=== PATIENT | male | born 1940 | race Caucasian/White ===

== ENCOUNTER 2021-05-10 02:01 | Inpatient (IN) | payer MEDICARE ==
[2021-05-10 02:54] LABS: #Lymphocytes 0.8 thou/uL (1.20-3.40); #Monocytes 0.7 thou/uL (0.11-0.59); #Neutrophils 10.6 thou/uL (1.40-6.50); %Basophils 0.1 % (0.0-1.0); %Eosinophils 0.2 % (0.0-10.0); %Lymphocytes 6.4 % (21.0-51.0); %Neutrophils 87.2 % (42.0-75.0); Hemoglobin 11.7 g/dL (14.0-18.0); Mean Corpuscular HGB CONC 33.8 g/dL (32.0-36.0); Mean Corpuscular Hemoglobin 33.5 pg (27.0-31.0); Mean Corpuscular Volume 99.3 fL (78.0-98.0); Mean Platelet Volume 7.7 fL (7.4-10.4); Platelet Count 176 thou/uL (130-400); Red Blood Cell (RBC) Count 3.49 mill/uL (4.70-6.10); White Blood Cell (WBC) Count 12.2 thou/uL (4.8-10.8)
[2021-05-10 03:18] LABS: ALT (SGPT) 101 U/L (8-55); AST (SGOT) 23 U/L (5-34); Albumin 4.1 g/dL (3.4-4.8); Alkaline Phosphatase 355 U/L (40-110); Anion Gap 17 mmol/L (10-20); BUN (Urea Nitrogen) 22 mg/dL (8.4-25.7); Bilirubin, Total 0.8 mg/dL (0.2-1.2); Calc. Creatinine Clearance 0 mL/min (70-130); Calcium 9.5 mg/dL (7.8-10.44); Carbon Dioxide 21 mmol/L (23-31); Chloride 102 mmol/L (98-107); Globulin 3.2 g/dL (2.4-3.5); Glucose 177 mg/dL (83-110); Potassium 4.1 mmol/L (3.5-5.1); Protein, Total 7.3 g/dL (5.8-8.1); Sodium 136 mmol/L (136-145)
[2021-05-10] MEDS ORDERED: Aspirin Chewable 81 MG TAB ONE ×2 (04:50→11:05)
[2021-05-10 05:58] LABS: Bacteria/HPF None Seen HPF (None Seen); Bilirubin Negative (Negative); Blood, Urine Trace (Negative); Clarity Clear (Clear); Glucose, Urine (Dipstick) 150 mg/dL (Negative); Ketone, Urine 20 mg/dL (Negative); Leukocyte Negative Leu/uL (Negative); Nitrite Negative (Negative); Protein, Urine (Dipstick) 300 mg/dL (Neg-Trace); RBC/HPF 0-3 HPF (0-3); Specific Gravity, Urine 1.018 (1.002-1.036); Squamous Epithelial None Seen HPF (0-3); Urobilinogen Normal mg/dL (Less than 2); WBC/HPF 0-3 HPF (0-3)
[2021-05-10 06:01] LABS: CKMB 4.8 ng/mL (0-6.6)
[2021-05-10] MEDS ORDERED: Fentanyl 100 MCG/2 ML VIAL ONE (06:55)
[2021-05-10] MEDS ORDERED: Piperacillin/Tazobactam 3.375 GM VIAL ONE ×3 (06:55→13:35)
[2021-05-10] MEDS ORDERED: Ondansetron PF 4 MG/2 ML Vial IVP PRN (09:32)
[2021-05-10] MEDS ORDERED: Senokot S 8.6-50 MG TAB PO PRN (09:32)
[2021-05-10] MEDS ORDERED: Ondansetron ODT 4 MG TAB PO PRN (09:32)
[2021-05-10] MEDS ORDERED: Bisacodyl 5 MG TAB PO PRN (09:32)
[2021-05-10] MEDS ORDERED: HumaLOG 300 UNITS/3 ML VIAL SC PRN (09:35)
[2021-05-10] MEDS ORDERED: Dextrose 5% in Water 1,000 ML IV PRN (09:35)
[2021-05-10] MEDS ORDERED: Dextrose 50% Abboject 50 ML SYRINGE SLOW IVP PRN (09:35)
[2021-05-10] MEDS ORDERED: Sodium Chloride 0.9% 1,000 ML IV SCH (09:45)
[2021-05-10] MEDS ORDERED: Carvedilol 25 MG TAB PO SCH (10:30)
[2021-05-10] MEDS ORDERED: Aspirin 81 mg Enteric Coated Tablet PO SCH (10:30)
[2021-05-10] MEDS ORDERED: Bisacodyl 10 MG SUPP PR SCH (10:30)
[2021-05-10] MEDS ORDERED: Losartan 25 MG TAB PO SCH (10:30)
[2021-05-10] MEDS ORDERED: Morphine 4 MG/ML VIAL SLOW IVP PRN (10:56)
[2021-05-10] MEDS ORDERED: Pantoprazole 40 MG VIAL IVP SCH (11:00)
[2021-05-10] MEDS ORDERED: Morphine 4 MG/ML VIAL ONE (11:05)
[2021-05-10] MEDS ORDERED: Bisacodyl 10 MG SUPP ONE (11:05)
[2021-05-10] MEDS ORDERED: Promethazine HCl 12.5 MG in Sodium Chloride 0.9% 50 ML IVPB PRN (11:45)
[2021-05-10] MEDS ORDERED: Furosemide 40 MG/4 ML VIAL SLOW IVP SCH (12:30)
[2021-05-10] MEDS ORDERED: Pantoprazole 40 MG VIAL ONE (12:39)
[2021-05-10] MEDS ORDERED: Furosemide 20 MG/2 ML VIAL ONE (13:04)
[2021-05-10 14:06] LABS: Troponin I 0.433 ng/mL (< 0.028)
[2021-05-10 14:29] LABS: SARS-CoV-2 NAA Rapid Test Not Detected (NotDetected)
[2021-05-10 14:45] LABS: #Lymphocytes 0.5 thou/uL (1.20-3.40); #Neutrophils 17.7 thou/uL (1.40-6.50); %Lymphocytes 2.5 % (21.0-51.0); %Monocytes 5.3 % (0.0-10.0); %Neutrophils 92.2 % (42.0-75.0); Hemoglobin 12.5 g/dL (14.0-18.0); Mean Corpuscular HGB CONC 34.4 g/dL (32.0-36.0); Mean Platelet Volume 7.7 fL (7.4-10.4); Platelet Count 184 thou/uL (130-400); Red Blood Cell (RBC) Count 3.68 mill/uL (4.70-6.10); White Blood Cell (WBC) Count 19.3 thou/uL (4.8-10.8)
[2021-05-10 15:31] LABS: ALT (SGPT) 94 U/L (8-55); AST (SGOT) 38 U/L (5-34); Albumin 3.9 g/dL (3.4-4.8); Alkaline Phosphatase 355 U/L (40-110); Anion Gap 19 mmol/L (10-20); BUN (Urea Nitrogen) 23 mg/dL (8.4-25.7); Calc. Creatinine Clearance 49 mL/min (70-130); Calcium 9.6 mg/dL (7.8-10.44); Carbon Dioxide 22 mmol/L (23-31); Chloride 101 mmol/L (98-107); Globulin 3.2 g/dL (2.4-3.5); Glucose 188 mg/dL (83-110); Potassium 3.7 mmol/L (3.5-5.1); Protein, Total 7.1 g/dL (5.8-8.1); Sodium 138 mmol/L (136-145)
[2021-05-10] MEDS: Carvedilol 25 MG TAB PO SCH (17:57)
[2021-05-10] MEDS: Amlodipine 10 MG TAB PO SCH (21:10)
[2021-05-10] MEDS: Atorvastatin Calcium 40 MG TAB PO SCH (21:10)
[2021-05-10] MEDS ORDERED: Magnesium Citrate 300 ML BOT PO SCH (21:15)
[2021-05-10] MEDS: Piperacillin/Tazobactam 3.375 GM in Sodium Chloride 0.9% 100 ML IVPB SCH ×2 (21:18→23:47)
[2021-05-11 05:17] LABS: #Lymphocytes 0.8 thou/uL (1.20-3.40); #Neutrophils 15.3 thou/uL (1.40-6.50); %Eosinophils 0.1 % (0.0-10.0); %Lymphocytes 4.7 % (21.0-51.0); %Monocytes 5.7 % (0.0-10.0); %Neutrophils 89.5 % (42.0-75.0); Hemoglobin 11.1 g/dL (14.0-18.0); Mean Corpuscular HGB CONC 34.8 g/dL (32.0-36.0); Mean Corpuscular Hemoglobin 34.5 pg (27.0-31.0); Mean Corpuscular Volume 99.1 fL (78.0-98.0); Mean Platelet Volume 8.2 fL (7.4-10.4); Platelet Count 161 thou/uL (130-400); RBC Distribution Width 11.9 % (11.5-14.5); Red Blood Cell (RBC) Count 3.21 mill/uL (4.70-6.10); White Blood Cell (WBC) Count 17.1 thou/uL (4.8-10.8)
[2021-05-11 05:44] LABS: ALT (SGPT) 230 U/L (8-55); AST (SGOT) 162 U/L (5-34); Albumin 3.2 g/dL (3.4-4.8); Alkaline Phosphatase 354 U/L (40-110); Anion Gap 14 mmol/L (10-20); BUN (Urea Nitrogen) 29 mg/dL (8.4-25.7); Bilirubin, Total 0.9 mg/dL (0.2-1.2); Calc. Creatinine Clearance 42 mL/min (70-130); Carbon Dioxide 25 mmol/L (23-31); Chloride 99 mmol/L (98-107); Globulin 2.8 g/dL (2.4-3.5); Glucose 211 mg/dL (83-110); Potassium 3.3 mmol/L (3.5-5.1); Sodium 135 mmol/L (136-145)
[2021-05-11] MEDS: Piperacillin/Tazobactam 3.375 GM in Sodium Chloride 0.9% 100 ML IVPB SCH ×3 (06:11→22:52)
[2021-05-11] MEDS ORDERED: Carvedilol 25 MG TAB PO SCH (08:00)
[2021-05-11] MEDS ORDERED: Melatonin 3 MG TAB PO PRN (08:01)
[2021-05-11] MEDS ORDERED: Cepastat Lozenges 1 LOZ PO PRN (08:01)
[2021-05-11] MEDS ORDERED: Sodium Chloride 0.65% Nasal 44 ML BOT EA NARE PRN (08:01)
[2021-05-11] MEDS ORDERED: Bisacodyl 5 MG TAB PO PRN (08:01)
[2021-05-11] MEDS ORDERED: GUAIFENESIN SF SOLN 200 MG/10 ML UDCUP PO PRN (08:01)
[2021-05-11] MEDS ORDERED: hydrALAZINE 20 MG/ML VIAL SLOW IVP PRN (08:01)
[2021-05-11] MEDS ORDERED: Loperamide HCl 2 MG CAP PO PRN (08:01)
[2021-05-11] MEDS ORDERED: Senokot S 8.6-50 MG TAB PO PRN (08:01)
[2021-05-11] MEDS ORDERED: Loratadine 10 MG TAB PO PRN (08:01)
[2021-05-11] MEDS ORDERED: Calcium Carbonate 500 MG ChewTAB PO PRN (08:01)
[2021-05-11] MEDS: Pantoprazole 40 MG VIAL IVP SCH (08:04)
[2021-05-11] MEDS: Aspirin 81 mg Enteric Coated Tablet PO SCH (08:05)
[2021-05-11] MEDS: Carvedilol 25 MG TAB PO SCH ×2 (08:05→16:38)
[2021-05-11] MEDS: Allopurinol 100 MG TAB PO SCH (08:53)
[2021-05-11] MEDS ORDERED: Losartan 25 MG TAB PO SCH (09:00)
[2021-05-11] MEDS ORDERED: Enoxaparin Sodium 40 MG/0.4 ML SYRINGE SC SCH (09:00)
[2021-05-11] MEDS: HumaLOG 300 UNITS/3 ML VIAL SC PRN (17:56)
[2021-05-11] MEDS: Atorvastatin Calcium 40 MG TAB PO SCH (21:12)
[2021-05-11] MEDS: Amlodipine 10 MG TAB PO SCH (21:12)
[2021-05-11] MEDS: Tamsulosin HCl 0.4 MG CAP PO SCH (21:12)
[2021-05-11] MEDS: COMBIGAN EA EYE SCH (21:13)
[2021-05-11] MEDS: SIMBRINZA EA EYE SCH (21:14)
[2021-05-11] MEDS: VYZULTA EA EYE SCH (21:14)
[2021-05-12 05:24] LABS: #Lymphocytes 0.9 thou/uL (1.20-3.40); #Monocytes 0.7 thou/uL (0.11-0.59); #Neutrophils 12.7 thou/uL (1.40-6.50); %Eosinophils 0.1 % (0.0-10.0); %Monocytes 4.8 % (0.0-10.0); Hemoglobin 9.8 g/dL (14.0-18.0); Mean Corpuscular HGB CONC 33.5 g/dL (32.0-36.0); Mean Corpuscular Hemoglobin 33.6 pg (27.0-31.0); Mean Platelet Volume 8.1 fL (7.4-10.4); Platelet Count 151 thou/uL (130-400); Red Blood Cell (RBC) Count 2.92 mill/uL (4.70-6.10); White Blood Cell (WBC) Count 14.2 thou/uL (4.8-10.8)
[2021-05-12 05:51] LABS: ALT (SGPT) 176 U/L (8-55); AST (SGOT) 106 U/L (5-34); Alkaline Phosphatase 338 U/L (40-110); Anion Gap 15 mmol/L (10-20); BUN (Urea Nitrogen) 45 mg/dL (8.4-25.7); Bilirubin, Total 0.9 mg/dL (0.2-1.2); Calc. Creatinine Clearance 23 mL/min (70-130); Calcium 8.6 mg/dL (7.8-10.44); Carbon Dioxide 25 mmol/L (23-31); Chloride 96 mmol/L (98-107); Globulin 2.9 g/dL (2.4-3.5); Glucose 168 mg/dL (83-110); Phosphorus 3.8 mg/dL (2.3-4.7); Potassium 3.2 mmol/L (3.5-5.1); Protein, Total 5.9 g/dL (5.8-8.1); Sodium 133 mmol/L (136-145)
[2021-05-12] MEDS: Piperacillin/Tazobactam 3.375 GM in Sodium Chloride 0.9% 100 ML IVPB SCH ×3 (06:50→23:25)
[2021-05-12] MEDS: Aspirin 81 mg Enteric Coated Tablet PO SCH (09:06)
[2021-05-12] MEDS: Allopurinol 100 MG TAB PO SCH (09:06)
[2021-05-12] MEDS: Carvedilol 25 MG TAB PO SCH ×2 (09:06→16:07)
[2021-05-12] MEDS: Pantoprazole 40 MG VIAL IVP SCH (09:07)
[2021-05-12] MEDS: COMBIGAN EA EYE SCH ×2 (09:08→21:41)
[2021-05-12] MEDS: SIMBRINZA EA EYE SCH ×2 (09:37→21:41)
[2021-05-12] MEDS: Ursodiol 300 MG CAP PO SCH (16:07)
[2021-05-12] MEDS: HumaLOG 300 UNITS/3 ML VIAL SC PRN (16:12)
[2021-05-12] MEDS ORDERED: Amlodipine 5 MG TAB PO SCH (21:00)
[2021-05-12] MEDS: Atorvastatin Calcium 40 MG TAB PO SCH (21:40)
[2021-05-12] MEDS: Tamsulosin HCl 0.4 MG CAP PO SCH (21:40)
[2021-05-12] MEDS: VYZULTA EA EYE SCH (21:41)
[2021-05-13 05:18] LABS: #Lymphocytes 0.7 thou/uL (1.20-3.40); #Monocytes 0.5 thou/uL (0.11-0.59); #Neutrophils 8.7 thou/uL (1.40-6.50); %Basophils 0.2 % (0.0-1.0); %Eosinophils 0.4 % (0.0-10.0); %Lymphocytes 6.8 % (21.0-51.0); %Monocytes 4.8 % (0.0-10.0); %Neutrophils 87.8 % (42.0-75.0); Hemoglobin 9.3 g/dL (14.0-18.0); Mean Corpuscular HGB CONC 34.6 g/dL (32.0-36.0); Mean Corpuscular Hemoglobin 34.5 pg (27.0-31.0); Mean Corpuscular Volume 99.6 fL (78.0-98.0); Mean Platelet Volume 8.2 fL (7.4-10.4); Platelet Count 132 thou/uL (130-400); RBC Distribution Width 11.8 % (11.5-14.5); Red Blood Cell (RBC) Count 2.69 mill/uL (4.70-6.10); White Blood Cell (WBC) Count 9.9 thou/uL (4.8-10.8)
[2021-05-13 05:43] LABS: ALT (SGPT) 507 U/L (8-55); AST (SGOT) 444 U/L (5-34); Albumin 2.8 g/dL (3.4-4.8); Alkaline Phosphatase 508 U/L (40-110); Anion Gap 19 mmol/L (10-20); BUN (Urea Nitrogen) 54 mg/dL (8.4-25.7); Bilirubin, Total 1.1 mg/dL (0.2-1.2); Calc. Creatinine Clearance 14 mL/min (70-130); Calcium 8.1 mg/dL (7.8-10.44); Carbon Dioxide 21 mmol/L (23-31); Chloride 95 mmol/L (98-107); Globulin 2.8 g/dL (2.4-3.5); Glucose 156 mg/dL (83-110); Potassium 2.9 mmol/L (3.5-5.1); Protein, Total 5.6 g/dL (5.8-8.1); Sodium 132 mmol/L (136-145)
[2021-05-13] MEDS ORDERED: Potassium Chloride 20 MEQ TAB PO SCH (06:00)
[2021-05-13] MEDS: Piperacillin/Tazobactam 3.375 GM in Sodium Chloride 0.9% 100 ML IVPB SCH ×3 (06:28→23:09)
[2021-05-13] MEDS: HumaLOG 300 UNITS/3 ML VIAL SC PRN ×2 (06:29→12:37)
[2021-05-13] MEDS: Carvedilol 25 MG TAB PO SCH ×2 (09:31→17:31)
[2021-05-13] MEDS: Allopurinol 100 MG TAB PO SCH (09:31)
[2021-05-13] MEDS: Aspirin 81 mg Enteric Coated Tablet PO SCH (09:31)
[2021-05-13] MEDS: Ursodiol 300 MG CAP PO SCH ×2 (09:31→17:31)
[2021-05-13] MEDS: Pantoprazole 40 MG VIAL IVP SCH (09:32)
[2021-05-13] MEDS: Heparin 5,000 UNITS/ML VIAL SC SCH ×2 (09:32→20:47)
[2021-05-13] MEDS: Cyanocobalamin (Vitamin B-12) 1,000 MCG TAB PO SCH (09:32)
[2021-05-13] MEDS: Folic Acid 1 MG TAB PO SCH (09:32)
[2021-05-13] MEDS: SIMBRINZA EA EYE SCH ×2 (09:33→20:47)
[2021-05-13] MEDS: COMBIGAN EA EYE SCH ×2 (09:33→20:47)
[2021-05-13] MEDS: 1/2 NS w/KCL 20 mEq 1,000 ML IV SCH (09:54)
[2021-05-13] MEDS: Albumin 25% 25 GM/100 ML BOT IVPB SCH ×3 (12:37→23:39)
[2021-05-13] MEDS: VYZULTA EA EYE SCH (20:46)
[2021-05-13] MEDS: Tamsulosin HCl 0.4 MG CAP PO SCH (20:46)
[2021-05-13] MEDS ORDERED: Atorvastatin Calcium 40 MG TAB PO SCH (21:00)
[2021-05-14] MEDS: 1/2 NS w/KCL 20 mEq 1,000 ML IV SCH (02:57)
[2021-05-14 04:47] LABS: #Lymphocytes 0.5 thou/uL (1.20-3.40); #Monocytes 0.5 thou/uL (0.11-0.59); #Neutrophils 7.6 thou/uL (1.40-6.50); %Basophils 0.1 % (0.0-1.0); %Eosinophils 0.3 % (0.0-10.0); %Lymphocytes 6.1 % (21.0-51.0); %Monocytes 6.2 % (0.0-10.0); %Neutrophils 87.3 % (42.0-75.0); Hemoglobin 8.1 g/dL (14.0-18.0); Mean Corpuscular HGB CONC 35.2 g/dL (32.0-36.0); Mean Corpuscular Hemoglobin 34.9 pg (27.0-31.0); Mean Corpuscular Volume 99.1 fL (78.0-98.0); Mean Platelet Volume 8.1 fL (7.4-10.4); Platelet Count 122 thou/uL (130-400); RBC Distribution Width 11.6 % (11.5-14.5); Red Blood Cell (RBC) Count 2.33 mill/uL (4.70-6.10); White Blood Cell (WBC) Count 8.8 thou/uL (4.8-10.8)
[2021-05-14 05:08] LABS: ALT (SGPT) 301 U/L (8-55); AST (SGOT) 197 U/L (5-34); Albumin 3.2 g/dL (3.4-4.8); Alkaline Phosphatase 583 U/L (40-110); Anion Gap 22 mmol/L (10-20); BUN (Urea Nitrogen) 59 mg/dL (8.4-25.7); Bilirubin, Total 1.7 mg/dL (0.2-1.2); Calc. Creatinine Clearance 11 mL/min (70-130); Calcium 7.9 mg/dL (7.8-10.44); Carbon Dioxide 15 mmol/L (23-31); Chloride 95 mmol/L (98-107); Globulin 2.5 g/dL (2.4-3.5); Glucose 159 mg/dL (83-110); Magnesium 2.8 mg/dL (1.6-2.6); Potassium 3.7 mmol/L (3.5-5.1); Protein, Total 5.7 g/dL (5.8-8.1); Sodium 128 mmol/L (136-145)
[2021-05-14] MEDS: HumaLOG 300 UNITS/3 ML VIAL SC PRN (06:09)
[2021-05-14] MEDS: Piperacillin/Tazobactam 3.375 GM in Sodium Chloride 0.9% 100 ML IVPB SCH (06:10)
[2021-05-14] MEDS: Albumin 25% 25 GM/100 ML BOT IVPB SCH ×4 (06:10→22:47)
[2021-05-14] MEDS ORDERED: Sodium Bicarbonate 150 MEQ in Dextrose 5% in Water 1,000 ML IV SCH ×2 (09:15→23:00)
[2021-05-14] MEDS: Allopurinol 100 MG TAB PO SCH (10:12)
[2021-05-14] MEDS: Aspirin 81 mg Enteric Coated Tablet PO SCH (10:12)
[2021-05-14] MEDS: Carvedilol 25 MG TAB PO SCH ×2 (10:12→21:06)
[2021-05-14] MEDS: Cyanocobalamin (Vitamin B-12) 1,000 MCG TAB PO SCH (10:12)
[2021-05-14] MEDS: Ursodiol 300 MG CAP PO SCH ×2 (10:12→21:06)
[2021-05-14] MEDS: Saccharomyces boulardii 250 MG CAP PO SCH (10:13)
[2021-05-14] MEDS: Pantoprazole 40 MG VIAL IVP SCH (10:13)
[2021-05-14] MEDS: Folic Acid 1 MG TAB PO SCH (10:13)
[2021-05-14] MEDS: CEFEPIME HCL IN DEXTROSE 5 % 1 GM in Premix Bag 1 BAG IVPB SCH (10:13)
[2021-05-14] MEDS: SIMBRINZA EA EYE SCH ×2 (10:31→23:34)
[2021-05-14] MEDS: COMBIGAN EA EYE SCH ×2 (10:32→23:34)
[2021-05-14] MEDS: Heparin 5,000 UNITS/ML VIAL SC SCH ×2 (10:45→23:34)
[2021-05-14 12:35] LABS: INR-International Normal Ratio 1.5; Prothrombin Time 18.4 sec (12.0-14.7)
[2021-05-14 12:36] LABS: PTT 46.3 sec (22.9-36.1)
[2021-05-14 16:05] LABS: Bilirubin Negative (Negative); Blood, Urine 3+ (Negative); Clarity Extra Turbid (Clear); Glucose, Urine (Dipstick) 100 mg/dL (Negative); Ketone, Urine 10 mg/dL (Negative); Leukocyte Negative Leu/uL (Negative); Nitrite Negative (Negative); Protein, Urine (Dipstick) 200 mg/dL (Neg-Trace); Specific Gravity, Urine 1.034 (1.002-1.036); Urobilinogen Normal mg/dL (Less than 2); pH, Urine 5.5 (5.0-9.0)
[2021-05-14 16:15] LABS: RBC/HPF 21-50 HPF (0-3); Squamous Epithelial 0-3 HPF (0-3); WBC/HPF 0-3 HPF (0-3)
[2021-05-14 16:16] LABS: Bacteria/HPF 3+ HPF (None Seen); Yeast-Budding None Seen HPF (None Seen)
[2021-05-14 16:17] LABS: Transitional Epithelial 0-3 HPF (None Seen)
[2021-05-14 16:32] LABS: Creatinine, Urine 160.3 mg/dL (63-166)
[2021-05-14] MEDS ORDERED: EPINEPHrine 1 MG/ML AMP ONE (16:38)
[2021-05-14] MEDS ORDERED: Bupivacaine 0.25% HCL 30 ML VIAL ONE (16:38)
[2021-05-14] MEDS ORDERED: Fentanyl 100 MCG/2 ML VIAL ONE (16:55)
[2021-05-14] MEDS ORDERED: Ketamine 50 MG/ML (10ML VIAL) ONE (17:32)
[2021-05-14] MEDS ORDERED: Midazolam HCl 2 mg/2 ml Vial ONE (17:38)
[2021-05-14] MEDS ORDERED: Phenylephrine 10 MG/ML VIAL ONE (17:38)
[2021-05-14] MEDS ORDERED: Albumin 5% 250 ML ONE (17:38)
[2021-05-14] MEDS ORDERED: Ondansetron PF 4 MG/2 ML Vial ONE (17:44)
[2021-05-14] MEDS ORDERED: Vecuronium 10 MG VIAL ONE (17:44)
[2021-05-14] MEDS ORDERED: Rocuronium Bromide 10 MG/ML (10ML VIAL) ONE (17:44)
[2021-05-14] MEDS ORDERED: Calcium Chloride 1 GM/10 ML Abboject SYRINGE ONE ×2 (17:44→20:53)
[2021-05-14] MEDS ORDERED: PROPOFOL 200 MG/20 ML VIAL ONE (17:44)
[2021-05-14] MEDS ORDERED: PHENYLEPHRINE-NS 100 MCG/ML 10 ML SYRINGE ONE (17:44)
[2021-05-14] MEDS ORDERED: Dexamethasone 20 MG/5 ML VIAL ONE (17:44)
[2021-05-14] MEDS ORDERED: Sodium Bicarb 50 MEQ/50 ML Abboject 8.4% SYRINGE ONE ×2 (20:05→20:58)
[2021-05-14] MEDS ORDERED: Sodium Bicarbonate 2.5 MEQ/5 ML VIAL ONE (20:05)
[2021-05-14] MEDS ORDERED: Mannitol 12.5 GM/50 ML ONE (20:27)
[2021-05-14 20:40] LABS: #Lymphocytes 0.5 thou/uL (1.20-3.40); #Monocytes 0.5 thou/uL (0.11-0.59); #Neutrophils 9.6 thou/uL (1.40-6.50); %Eosinophils 0.1 % (0.0-10.0); %Lymphocytes 4.6 % (21.0-51.0); %Neutrophils 90.2 % (42.0-75.0); Hemoglobin 8.5 g/dL (14.0-18.0); Mean Corpuscular HGB CONC 36.4 g/dL (32.0-36.0); Mean Corpuscular Hemoglobin 34.6 pg (27.0-31.0); Mean Corpuscular Volume 95.1 fL (78.0-98.0); Platelet Count 141 thou/uL (130-400); RBC Distribution Width 12.5 % (11.5-14.5); Red Blood Cell (RBC) Count 2.47 mill/uL (4.70-6.10); White Blood Cell (WBC) Count 10.6 thou/uL (4.8-10.8)
[2021-05-14 20:46] LABS: INR-International Normal Ratio 1.7; PTT 47.6 sec (22.9-36.1); Prothrombin Time 20.4 sec (12.0-14.7)
[2021-05-14] MEDS ORDERED: Sodium Chloride 0.9% 30 ML ONE (20:54)
[2021-05-14 21:45] LABS: Actual Bicarbonate (HCO3a) 18.7 mEq/L (22-28); Base Excess (BEa) -5.9 mEq/L (-2.0 to +3.0); CO2 Tension 33.4 mmHg (35.0-45.0); Calcium, Ionized (arterial) 1.16 mmol/L (1.12-1.30); Carboxyhemoglobin (COHb) 1.2 gm% (0.0-3.0); Hemoglobin (Hb) 7.9 g/dL (14.0-18.0); O2 Tension (PaO2), arterial 72.4 mmHg (> 60.0); Potassium - ABG Lab 3.98 mmol/L (3.70-5.30); Puncture Site Arterial Line; pH, Arterial 7.37 (7.35-7.45)
[2021-05-14 22:23] LABS: Hemoglobin 7.4 g/dL (14.0-18.0); Mean Corpuscular HGB CONC 35.5 g/dL (32.0-36.0); Mean Corpuscular Hemoglobin 33.5 pg (27.0-31.0); Mean Corpuscular Volume 94.5 fL (78.0-98.0); Mean Platelet Volume 7.7 fL (7.4-10.4); Platelet Count 127 thou/uL (130-400); RBC Distribution Width 12.7 % (11.5-14.5); Red Blood Cell (RBC) Count 2.19 mill/uL (4.70-6.10); White Blood Cell (WBC) Count 6.5 thou/uL (4.8-10.8)
[2021-05-14 22:30] LABS: INR-International Normal Ratio 1.6
[2021-05-14] MEDS ORDERED: Fentanyl CADD 100 ML IV SCH (22:30)
[2021-05-14 22:31] LABS: PTT 43.7 sec (22.9-36.1)
[2021-05-14] MEDS ORDERED: Ventilator Sedation Protocol 1 EACH FS ONE (22:31)
[2021-05-14 22:35] LABS: Band 4 % (5-11); Lymphocytes 4 % (21-51); MDiff Complete? YES; Monocytes 2 % (0-10); Neutrophil 90 % (42-75)
[2021-05-14 22:38] LABS: Lactic Acid 0.6 mmol/L (0.5-2.2)
[2021-05-14] MEDS ORDERED: Propofol BOLUS 1,000 MG/100 ML VIAL IV PRN (22:45)
[2021-05-14] MEDS ORDERED: Lorazepam 2 MG/ML VIAL SLOW IVP PRN (22:45)
[2021-05-14] MEDS ORDERED: Fentanyl BOLUS 250 ML IVPB PRN (22:45)
[2021-05-14] MEDS ORDERED: Propofol 1,000 MG/100 ML VIAL IV PRN (22:45)
[2021-05-14] MEDS ORDERED: Morphine 2 MG/ML VIAL SLOW IVP PRN (22:45)
[2021-05-14 22:46] LABS: Albumin 2.6 g/dL (3.4-4.8)
[2021-05-14 22:47] LABS: Chloride 98 mmol/L (98-107); Potassium 4.2 mmol/L (3.5-5.1); Sodium 131 mmol/L (136-145)
[2021-05-14 22:48] LABS: Glucose 195 mg/dL (83-110)
[2021-05-14 22:49] LABS: Globulin 1.5 g/dL (2.4-3.5)
[2021-05-14 22:50] LABS: Bilirubin, Total 2.3 mg/dL (0.2-1.2); Carbon Dioxide 17 mmol/L (23-31)
[2021-05-14 22:51] LABS: Alkaline Phosphatase 375 U/L (40-110); Phosphorus 4.6 mg/dL (2.3-4.7)
[2021-05-14 22:52] LABS: BUN (Urea Nitrogen) 58 mg/dL (8.4-25.7); Calc. Creatinine Clearance 12 mL/min (70-130)
[2021-05-14 22:53] LABS: AST (SGOT) 127 U/L (5-34)
[2021-05-14 22:54] LABS: ALT (SGPT) 163 U/L (8-55); Magnesium 2.5 mg/dL (1.6-2.6)
[2021-05-14 22:59] LABS: Protein, Total 4.1 g/dL (5.8-8.1)
[2021-05-14 23:00] LABS: Anion Gap 20 mmol/L (10-20)
[2021-05-14] MEDS ORDERED: Fentanyl CADD 100 ML ONE (23:08)
[2021-05-14] MEDS: Tamsulosin HCl 0.4 MG CAP PO SCH (23:35)
[2021-05-14] MEDS: VYZULTA EA EYE SCH (23:35)
[2021-05-15 00:31] LABS: Actual Bicarbonate (HCO3a) 20.2 mEq/L (22-28); Base Excess (BEa) -4.5 mEq/L (-2.0 to +3.0); CO2 Tension 35.1 mmHg (35.0-45.0); Calcium, Ionized (arterial) 1.07 mmol/L (1.12-1.30); Carboxyhemoglobin (COHb) 1.1 gm% (0.0-3.0); O2 Tension (PaO2), arterial 110.2 mmHg (> 60.0); Potassium - ABG Lab 4.11 mmol/L (3.70-5.30); pH, Arterial 7.38 (7.35-7.45)
[2021-05-15 00:32] LABS: ALV-art Gradient 131.125 mmHg (0-20); Puncture Site Arterial Line
[2021-05-15] MEDS ORDERED: Calcium Chloride 13.6 MEQ in Sodium Chloride 0.9% 100 ML IVPB SCH ×2 (00:45→08:15)
[2021-05-15] MEDS: HumaLOG 300 UNITS/3 ML VIAL SC PRN ×2 (01:06→10:22)
[2021-05-15] MEDS: Albumin 25% 25 GM/100 ML BOT IVPB SCH (05:52)
[2021-05-15 07:12] LABS: Actual Bicarbonate (HCO3a) 17.9 mEq/L (22-28); Base Excess (BEa) -6.8 mEq/L (-2.0 to +3.0); Calcium, Ionized (arterial) 1.08 mmol/L (1.12-1.30); Carboxyhemoglobin (COHb) 1.6 gm% (0.0-3.0); Hemoglobin (Hb) 7.2 g/dL (14.0-18.0); O2 Tension (PaO2), arterial 126.8 mmHg (> 60.0); Potassium - ABG Lab 4.14 mmol/L (3.70-5.30); pH, Arterial 7.37 (7.35-7.45)
[2021-05-15 07:15] LABS: Puncture Site Arterial Line
[2021-05-15 07:59] LABS: Lactic Acid 0.5 mmol/L (0.5-2.2)
[2021-05-15 08:05] LABS: #Basophils 0.1 thou/uL (0.0-0.2); #Lymphocytes 0.2 thou/uL (1.20-3.40); #Monocytes 0.3 thou/uL (0.11-0.59); #Neutrophils 5.5 thou/uL (1.40-6.50); %Basophils 1.5 % (0.0-1.0); %Eosinophils 0.1 % (0.0-10.0); %Lymphocytes 3.1 % (21.0-51.0); %Monocytes 4.7 % (0.0-10.0); %Neutrophils 90.5 % (42.0-75.0); Band 16 % (5-11); Hemoglobin 6.7 g/dL (14.0-18.0); Lymphocytes 2 % (21-51); MDiff Complete? YES; Mean Corpuscular HGB CONC 34.6 g/dL (32.0-36.0); Mean Corpuscular Hemoglobin 32.5 pg (27.0-31.0); Mean Corpuscular Volume 93.8 fL (78.0-98.0); Mean Platelet Volume 8.4 fL (7.4-10.4); Monocytes 6 % (0-10); Neutrophil 76 % (42-75); Platelet Count 97 thou/uL (130-400); Platelet Morphology Comment Appears Decreased; RBC Distribution Width 12.9 % (11.5-14.5); Red Blood Cell (RBC) Count 2.08 mill/uL (4.70-6.10)
[2021-05-15 08:15] LABS: INR-International Normal Ratio 1.6; PTT 39.9 sec (22.9-36.1); Prothrombin Time 19.3 sec (12.0-14.7)
[2021-05-15 08:17] LABS: ALT (SGPT) 117 U/L (8-55); AST (SGOT) 134 U/L (5-34); Albumin 3.1 g/dL (3.4-4.8); Alkaline Phosphatase 266 U/L (40-110); Anion Gap 22 mmol/L (10-20); BUN (Urea Nitrogen) 67 mg/dL (8.4-25.7); Bilirubin, Total 4.1 mg/dL (0.2-1.2); Calc. Creatinine Clearance 11 mL/min (70-130); Calcium 8.5 mg/dL (7.8-10.44); Carbon Dioxide 16 mmol/L (23-31); Chloride 98 mmol/L (98-107); Globulin 1.5 g/dL (2.4-3.5); Glucose 205 mg/dL (83-110); Magnesium 2.5 mg/dL (1.6-2.6); Potassium 4.3 mmol/L (3.5-5.1); Protein, Total 4.6 g/dL (5.8-8.1); Sodium 132 mmol/L (136-145)
[2021-05-15 09:17] LABS: ALT (SGPT) 113 U/L (8-55); AST (SGOT) 137 U/L (5-34); Albumin 2.9 g/dL (3.4-4.8); Alkaline Phosphatase 272 U/L (40-110); Bilirubin, Direct 3.8 mg/dL (0.1-0.3); Bilirubin, Total 4.4 mg/dL (0.2-1.2); Protein, Total 4.5 g/dL (5.8-8.1)
[2021-05-15 09:21] LABS: Phosphorus 5.8 mg/dL (2.3-4.7)
[2021-05-15] MEDS: Carvedilol 25 MG TAB PO SCH (09:31)
[2021-05-15] MEDS: Aspirin 81 mg Enteric Coated Tablet PO SCH (09:31)
[2021-05-15] MEDS: Ursodiol 300 MG CAP PO SCH (09:31)
[2021-05-15] MEDS: Folic Acid 1 MG TAB PO SCH ×2 (09:49→15:08)
[2021-05-15] MEDS: Pantoprazole 40 MG VIAL IVP SCH ×2 (09:49→15:08)
[2021-05-15] MEDS: Cyanocobalamin (Vitamin B-12) 1,000 MCG TAB PO SCH ×2 (09:49→15:08)
[2021-05-15] MEDS: Saccharomyces boulardii 250 MG CAP PO SCH ×2 (09:49→15:08)
[2021-05-15] MEDS: SIMBRINZA EA EYE SCH (09:50)
[2021-05-15] MEDS: Heparin 5,000 UNITS/ML VIAL SC SCH (09:50)
[2021-05-15] MEDS: COMBIGAN EA EYE SCH (09:50)
[2021-05-15] MEDS: CEFEPIME HCL IN DEXTROSE 5 % 1 GM in Premix Bag 1 BAG IVPB SCH (10:22)
[2021-05-15] MEDS: Allopurinol 100 MG TAB PO SCH ×2 (10:32→15:08)
[2021-05-15 11:10] VITALS: TEMP 99.1
[2021-05-15 12:46] LABS: Actual Bicarbonate (HCO3a) 19.9 mEq/L (22-28); Base Excess (BEa) -4.5 mEq/L (-2.0 to +3.0); CO2 Tension 33.2 mmHg (35.0-45.0); Calcium, Ionized (arterial) 1.13 mmol/L (1.12-1.30); Carboxyhemoglobin (COHb) 0.8 gm% (0.0-3.0); Hemoglobin (Hb) 7.1 g/dL (14.0-18.0); O2 Tension (PaO2), arterial 103.4 mmHg (> 60.0); Potassium - ABG Lab 3.95 mmol/L (3.70-5.30)
[2021-05-15 12:49] LABS: Puncture Site Arterial Line
[2021-05-15 12:58] LABS: #Lymphocytes 0.3 thou/uL (1.20-3.40); #Monocytes 0.4 thou/uL (0.11-0.59); #Neutrophils 5.7 thou/uL (1.40-6.50); %Basophils 0.2 % (0.0-1.0); %Eosinophils 0.1 % (0.0-10.0); %Lymphocytes 5.1 % (21.0-51.0); %Neutrophils 88.6 % (42.0-75.0); Hemoglobin 7.1 g/dL (14.0-18.0); Mean Corpuscular HGB CONC 34.9 g/dL (32.0-36.0); Mean Corpuscular Hemoglobin 32.3 pg (27.0-31.0); Mean Corpuscular Volume 92.5 fL (78.0-98.0); Mean Platelet Volume 8.5 fL (7.4-10.4); Platelet Count 117 thou/uL (130-400); RBC Distribution Width 12.8 % (11.5-14.5); Red Blood Cell (RBC) Count 2.19 mill/uL (4.70-6.10); White Blood Cell (WBC) Count 6.5 thou/uL (4.8-10.8)
[2021-05-15 13:08] LABS: INR-International Normal Ratio 1.6; Prothrombin Time 19.3 sec (12.0-14.7)
[2021-05-15 13:09] LABS: PTT 40.2 sec (22.9-36.1)
[2021-05-15 13:58] VITALS: BMI 26.0
[2021-05-15 14:23] VITALS: BP 144/47
[2021-05-18 11:34] LABS: Actual Bicarbonate (HCO3a) 17.4 mEq/L (22-28); Analyzer IN Cardio OR; Base Excess (BEa) -8.3 mEq/L (-2.0 to +3.0); CO2 Tension 36.3 mmHg (35.0-45.0); Calcium, Ionized (arterial) 0.94 mmol/L (1.12-1.30); Carboxyhemoglobin (COHb) 0.1 gm% (0.0-3.0); Hemoglobin (Hb) 8.5 g/dL (14.0-18.0); O2 Tension (PaO2), arterial 219.5 mmHg (> 60.0); Potassium - ABG Lab 3.86 mmol/L (3.70-5.30)
[2021-05-18 11:34] LABS: Actual Bicarbonate (HCO3a) 19.2 mEq/L (22-28); Analyzer IN Cardio OR; Base Excess (BEa) -5.7 mEq/L (-2.0 to +3.0); CO2 Tension 35.1 mmHg (35.0-45.0); Calcium, Ionized (arterial) 0.99 mmol/L (1.12-1.30); Carboxyhemoglobin (COHb) 0.3 gm% (0.0-3.0); Hemoglobin (Hb) 7.6 g/dL (14.0-18.0); O2 Tension (PaO2), arterial 158.1 mmHg (> 60.0); Potassium - ABG Lab 3.81 mmol/L (3.70-5.30); Puncture Site Arterial Line; pH, Arterial 7.36 (7.35-7.45)
[2021-05-18 11:35] LABS: Puncture Site Arterial Line
== END 2021-05-15 17:22 | disposition hospice, inpatient (51) | DRG 853 ==
LOC: ERS 02:01 → ERHOLD 08:00 → 2SW 15:41 → CCU 05-14 19:53
PROVIDERS: ADMIT Family Medicine; ATTEND Internal Medicine
PROC: 8E0ZXY6 Isolation (ICD-10-PCS; 2021-05-10)
PROC: 0FT40ZZ Resection of Gallbladder, Open Approach (ICD-10-PCS; principal; 2021-05-14)
PROC: 0F944ZZ Drainage of Gallbladder, Percutaneous Endoscopic Approach (ICD-10-PCS; 2021-05-14)
PROC: 5A1935Z Respiratory Ventilation, Less than 24 Consecutive Hours (ICD-10-PCS; 2021-05-14)
PROC: 02HV33Z Insertion of Infusion Device into Superior Vena Cava, Percutaneous Approach (ICD-10-PCS; 2021-05-14)
PROC: 30233K1 Transfusion of Nonautologous Frozen Plasma into Peripheral Vein, Percutaneous Approach (ICD-10-PCS; 2021-05-15)
PROC: 30233N1 Transfusion of Nonautologous Red Blood Cells into Peripheral Vein, Percutaneous Approach (ICD-10-PCS; 2021-05-15)
DX: A41.9 Sepsis, unspecified organism (principal); I21.A1 Myocardial infarction type 2; I50.33 Acute on chronic diastolic (congestive) heart failure; J96.01 Acute respiratory failure with hypoxia; K80.00 Calculus of gallbladder with acute cholecystitis without obstruction; N17.9 Acute kidney failure, unspecified; D62 Acute posthemorrhagic anemia; I13.0 Hypertensive heart and chronic kidney disease with heart failure and stage 1 through stage 4 chronic kidney disease, or unspecified chronic kidney disease; R65.20 Severe sepsis without septic shock; Z20.822 Contact with and (suspected) exposure to COVID-19; Z66 Do not resuscitate; Z51.5 Encounter for palliative care; K82.A1 Gangrene of gallbladder in cholecystitis; E78.5 Hyperlipidemia, unspecified; K59.00 Constipation, unspecified; I25.10 Atherosclerotic heart disease of native coronary artery without angina pectoris; N40.0 Benign prostatic hyperplasia without lower urinary tract symptoms; N18.30 Chronic kidney disease, stage 3 unspecified; E11.22 Type 2 diabetes mellitus with diabetic chronic kidney disease; M10.9 Gout, unspecified; Z79.02 Long term (current) use of antithrombotics/antiplatelets; Z53.31 Laparoscopic surgical procedure converted to open procedure; Z78.1 Physical restraint status; Z95.5 Presence of coronary angioplasty implant and graft; Z90.49 Acquired absence of other specified parts of digestive tract; Z87.891 Personal history of nicotine dependence; Z88.8 Allergy status to other drugs, medicaments and biological substances; Z91.041 Radiographic dye allergy status; Z79.899 Other long term (current) drug therapy; Z79.82 Long term (current) use of aspirin; Z79.84 Long term (current) use of oral hypoglycemic drugs
CPT/HCPCS: 36415; 36416; 36430; 71045; 74022; 74176; 76705; 76770; 80053; 81001; 81003; 81015; 82553; 82570; 82805; 83605; 83690; 83735; 83880; 84100; 84145; 84156; 84300; 84484; 85025; 85384; 85610; 85730; 86850; 86900; 86901; 88304; 93005; 93306; 94002; 94003; 94640; 96365; 96375; C9113; J0171; J0692; J1100; J1642; J1644; J1815; J1940; J2150; J2250; J2270; J2370; J2405; J2543; J2704; J3010; J3480; J3490; J7070; J7620; P9016; P9035; P9045; P9047; P9059; S0020; U0002; U0005

== ENCOUNTER 2021-05-15 17:26 | Inpatient (IN) | payer OTHER ==
[2021-05-15] MEDS ORDERED: Lorazepam 2 MG/ML VIAL SLOW IVP PRN ×3 (18:48→18:59)
[2021-05-15] MEDS ORDERED: Morphine 2 MG/ML VIAL SLOW IVP PRN ×2 (18:48→18:50)
[2021-05-15] MEDS ORDERED: Acetaminophen 650 MG Suppository PR PRN (18:49)
[2021-05-15] MEDS ORDERED: Acetaminophen 325 MG TAB PO PRN (18:49)
[2021-05-15] MEDS ORDERED: diphenhydrAMINE 25 MG CAP PO PRN (18:51)
[2021-05-15] MEDS ORDERED: diphenhydrAMINE 50 MG/ML VIAL IVP PRN (18:51)
[2021-05-15] MEDS ORDERED: Haloperidol 1 MG TAB PO PRN (18:54)
[2021-05-15] MEDS ORDERED: Haloperidol Lactate 5 MG/ML VIAL SLOW IVP PRN (18:55)
[2021-05-15] MEDS ORDERED: Dexamethasone 4 mg/ml Vial SLOW IVP PRN (18:57)
[2021-05-15] MEDS ORDERED: Ondansetron PF 4 MG/2 ML Vial IVP PRN (18:57)
[2021-05-15] MEDS ORDERED: Glycopyrrolate 0.2 MG/ML 5 ML SYRINGE SLOW IVP PRN (19:01)
[2021-05-15] MEDS ORDERED: Atropine Sulfate 1% Ophth Soln 5 ml Bottle PO PRN (19:03)
[2021-05-15] MEDS ORDERED: Polyvinyl Alcohol 1.4%/Povidone 0.6% Opth Drops EA EYE PRN (19:04)
[2021-05-15] MEDS: Morphine 2 MG/ML VIAL SLOW IVP PRN ×3 (19:43→21:51)
[2021-05-15] MEDS ORDERED: Scopolamine 1.5 mg/72 hour Patch TOP SCH (20:00)
[2021-05-15 22:49] VITALS: BMI 23.9
[2021-05-16] MEDS: Morphine 2 MG/ML VIAL SLOW IVP PRN ×23 (00:47→23:38)
[2021-05-17] MEDS: Morphine 2 MG/ML VIAL SLOW IVP PRN ×18 (00:36→23:53)
[2021-05-18] MEDS: Morphine 2 MG/ML VIAL SLOW IVP PRN ×6 (01:13→08:40)
[2021-05-18 09:06] VITALS: BP 104/49; TEMP 98
== END 2021-05-18 13:20 | disposition expired | DRG 951 ==
LOC: CCU 17:26 → ONC 22:29
PROVIDERS: ADMIT Internal Medicine Nephrology; ATTEND Internal Medicine Nephrology
DX: Z51.5 Encounter for palliative care (principal); A41.9 Sepsis, unspecified organism; Z66 Do not resuscitate; I21.A1 Myocardial infarction type 2; I50.33 Acute on chronic diastolic (congestive) heart failure; J96.01 Acute respiratory failure with hypoxia; N17.9 Acute kidney failure, unspecified; K80.00 Calculus of gallbladder with acute cholecystitis without obstruction; I13.0 Hypertensive heart and chronic kidney disease with heart failure and stage 1 through stage 4 chronic kidney disease, or unspecified chronic kidney disease; E87.1 Hypo-osmolality and hyponatremia; N18.30 Chronic kidney disease, stage 3 unspecified; K59.00 Constipation, unspecified; N40.0 Benign prostatic hyperplasia without lower urinary tract symptoms; I25.10 Atherosclerotic heart disease of native coronary artery without angina pectoris; E11.22 Type 2 diabetes mellitus with diabetic chronic kidney disease; M10.9 Gout, unspecified; E78.5 Hyperlipidemia, unspecified; D50.0 Iron deficiency anemia secondary to blood loss (chronic)
CPT/HCPCS: 36430; J2060; J2270